=== PATIENT | male | born 1995 | race Caucasian/White ===

== ENCOUNTER 2019-01-11 08:27 | Emergency (ER) | payer MEDICAID ==
[~2019-01-11] VITALS: Ht 167.6 cm; Wt 90.0 kg
[~2019-01-11 08:27] MED LIST: NO HOME MEDS
[2019-01-11] MEDS ORDERED: ibuprofen tablet 400 MG TABLET PO ONE (09:40)
[2019-01-11] MEDS ORDERED: mag hydrox/Alum hydrox/simeth 30ml oral suspension PO ONE (09:40)
[2019-01-11] MEDS ORDERED: LIDOcaine Viscous 15ml cup PO ONE (09:40)
[2019-01-11] MEDS ORDERED: penicillin G benzathine 1.2 million unit/2ml syringe IM ONE (10:05)
[2019-01-11 10:56] VITALS: BP 124/68
== END 2019-01-11 10:58 | disposition home or self-care (01) ==
LOC: ER 08:28
DX: J02.0 Streptococcal pharyngitis (principal)
CPT/HCPCS: 87880; 96372; 99284; J0561